=== PATIENT | male | born 1995 | race Caucasian/White ===

== ENCOUNTER 2021-05-30 14:02 | Emergency (ER) | payer MEDICAID ==
[~2021-05-30] VITALS: Ht 172.7 cm; Wt 72.7 kg
[2021-05-30 14:41] VITALS: BP 128/72
== END 2021-05-30 14:52 ==
LOC: ER 14:03
DX: Z04.1 Encounter for examination and observation following transport accident (principal); R53.1 Weakness; F17.200 Nicotine dependence, unspecified, uncomplicated; Z99.3 Dependence on wheelchair
CPT/HCPCS: 99283

== ENCOUNTER 2021-07-19 23:04 | Emergency (ER) | payer MEDICAID, OTHER ==
[~2021-07-19] VITALS: Ht 175.3 cm; Wt 77.2 kg
[2021-07-19] MEDS: normal saline 1000ML IV soln IVB ONE ×2 (23:18→23:21)
[2021-07-19 23:40] LABS: EOSINOPHILS # (AUTO) 0.1 X10'3 (0-0.9); MEAN CORPUSCULAR VOLUME 83.7 FL (78-98); MEAN PLATELET VOLUME 8.4 FL (7.4-10.4)
[2021-07-19 23:42] LABS: BASOPHILS % (AUTO) 0.2 % (0-1); HEMATOCRIT 42.4 % (42.0-52.0); MEAN CORPUSCULAR HEMOGLOBIN 29.6 PG (27.0-31.0); MEAN CORPUSCULAR HGB CONC 35.3 g/dL (33.0-36.5); MONOCYTES # (AUTO) 0.5 X10'3 (0-0.9); MONOCYTES % (AUTO) 7.1 % (2-12); NEUTROPHILS # (AUTO) 1.8 X10'3 (1.8-7.7); NEUTROPHILS % (AUTO) 28.7 % (42-75); PLATELET COUNT 233 X10'3 (140-440); RED BLOOD COUNT 5.06 X10'6 (4.70-6.10); RED CELL DISTRIBUTION WIDTH 12.5 % (11.5-14.5); WHITE BLOOD COUNT 6.3 X10'3 (4.5-11.0)
[2021-07-19 23:51] LABS: ALANINE AMINOTRANSFERASE 23 U/L (12-78); ALBUMIN 4.3 G/DL (3.4-5.0); ALBUMIN/GLOBULIN RATIO 1.2 (1.1-1.5); ALKALINE PHOSPHATASE 41 IU/L (46-116); ANION GAP 14 (8-16); ASPARTATE AMINO TRANSFERASE 18 U/L (10-37); BILIRUBIN,TOTAL 0.7 MG/DL (0.1-1.0); BLOOD UREA NITROGEN 20 MG/DL (7-18); BUN/CREATININE RATIO 20.2 (5.4-32.0); CALCIUM 8.9 MG/DL (8.5-10.1); CHLORIDE 105 MMOL/L (99-107); CREATININE 0.99 MG/DL (0.60-1.10); GLUCOSE 108 MG/DL (70-104); POTASSIUM 3.7 MMOL/L (3.5-5.1); SODIUM 143 MMOL/L (135-145); TOTAL CARBON DIOXIDE 23.8 MMOL/L (24-32); TOTAL PROTEIN 7.9 G/DL (6.4-8.2); eGFR > 90 ML/MIN
[2021-07-20] MEDS ORDERED: naloxone 0.4 mg/ml inj IV PRN (00:10)
[2021-07-20 00:13] LABS: ETHANOL < 0.010 GM/DL (0.0-0.010); TROPONIN I < 0.04 NG/ML (0.0-0.05)
[2021-07-20 01:00] LABS: URINE AMPHETAMINE SCREEN NEGATIVE (Neg); URINE BARBITUATE SCREEN NEGATIVE (Neg); URINE BENZODIAZEPINES SCREEN NEGATIVE (Neg); URINE CANNABINOID SCREEN NEGATIVE (Neg); URINE COCAINE SCREEN NEGATIVE (Neg); URINE METHADONE SCREEN NEGATIVE (Neg); URINE OPIATE SCREEN NEGATIVE (Neg); URINE PHENCYCLIDINE SCREEN NEGATIVE (Neg)
[2021-07-20 01:06] LABS: CLARITY,URINE SLIGHTLY CLOUDY (Clear); COLOR,URINE YELLOW (Yellow); GLUCOSE, URINE NEGATIVE (Neg); KETONES,URINE NEGATIVE (Neg); LEUKOCYTE ESTERASE ,URINE NEGATIVE (Neg); NITRITES, URINE NEGATIVE (Neg); OCCULT BLOOD,URINE TRACE-LYSED (Neg); PROTEIN,URINE NEGATIVE (Neg); UA COLLECTION TYPE NON-SPECIFIED; UROBILINOGEN,URINE 0.2 E.U/dL (0.2-1.0)
[2021-07-20 01:08] LABS: BACTERIA,URINE FEW /HPF (Neg); RBC,URINE 0-2 /HPF (0-2); SPERM MANY /HPF (NEGATIVE); SQUAMOUS EPITHELIAL CELL,UR FEW /LPF (FEW); WBC,URINE 0-4 /HPF (0-4)
[2021-07-20 01:47] LABS: TOTAL CELLS COUNTED 100
[2021-07-20 02:01] VITALS: BP 132/80
[2021-07-20 03:03] LABS: PLATELET ESTIMATE NORMAL
== END 2021-07-20 02:04 ==
LOC: ER 23:05 → EEVIPCON 23:05 → ER 07-20 02:04
DX: R41.82 Altered mental status, unspecified (principal)
CPT/HCPCS: 36415; 70450; 71045; 80053; 80305; 80320; 81001; 82140; 83605; 84145; 84443; 84484; 85007; 85025; 87040; 93005; 99285; J7030